=== PATIENT | female | born 1985 | race Caucasian/White ===

== ENCOUNTER 2017-08-01 03:15 | Emergency (ER) | payer MEDICAID ==
[~2017-08-01] VITALS: Ht 154.9 cm; Wt 69.0 kg
[2017-08-01 07:12] VITALS: BP 123/56
== END 2017-08-01 09:49 | disposition home or self-care (01) ==
LOC: ER 03:16
DX: O26.893 Other specified pregnancy related conditions, third trimester (principal); M25.511 Pain in right shoulder; Z3A.29 29 weeks gestation of pregnancy; X50.0XXA Overexertion from strenuous movement or load, initial encounter; Y93.89 Activity, other specified; Y92.89 Other specified places as the place of occurrence of the external cause
CPT/HCPCS: 73030; 99284